=== PATIENT | male | born 1960 | race Caucasian/White ===

== ENCOUNTER 2016-07-22 23:36 | Emergency (ER) | payer BC, OTHER ==
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
--- NOTE | 2016-07-23 02:02 | ED ORDER SUMMARY ---
..... Patient: RITA JEAN OrderSheet [facility] VisitID: [id number] [address] [place] [address] 56y, M Registration Date/Time: 07/22/2016 ORDER SHEET Weight: 99.7 kg (stated) Allergies: Tetracycline GENERAL ORDERS: CT Head wo Cont Urgent (23:47 07/22/2016 EKoroleva P.A.-C) (Ack 23:51 SRedmond) (0:19 RFay) Breathalyzer (23:55 07/22/2016 EKoroleva P.A.-C) (0:03 JDeElena R.N.) Ethyl Alcohol Urgent (00:01 07/23/2016 EKoroleva P.A.-C) (Ack 0:06 SRedmond) (1:08 JDeElena R.N.) CBC w Diff Urgent (00:01 07/23/2016 EKoroleva P.A.-C) (Ack 0:06 SRedmond) (1:08 JDeElena R.N.) CMP Urgent (00:01 07/23/2016 EKoroleva P.A.-C) (Ack 0:06 SRedmond) (1:08 JDeElena R.N.) MEDICATION ORDERS: IV FLUIDS: ORDER SHEET NOTES: [Electronically signed by Jordana Almonte R.N. (02:08 07/23/2016)] [Electronically signed by Cem Velasco DO (03:21 07/23/2016)] [Electronically locked/signed by Jordana Almonte R.N. (02:08 07/23/2016)]
--- NOTE | 2016-07-23 02:02 | ED ORDER SUMMARY ---
..... Patient: RITA JEAN OrderSheet [facility] VisitID: [id number] [address] [place] [address] 56y, M Registration Date/Time: 07/22/2016 ORDER SHEET Weight: 99.7 kg (stated) Allergies: Tetracycline GENERAL ORDERS: CT Head wo Cont Urgent (23:47 07/22/2016 EKoroleva P.A.-C) (Ack 23:51 SRedmond) (0:19 RFay) Breathalyzer (23:55 07/22/2016 EKoroleva P.A.-C) (0:03 JDeElena R.N.) Ethyl Alcohol Urgent (00:01 07/23/2016 EKoroleva P.A.-C) (Ack 0:06 SRedmond) (1:08 JDeElena R.N.) CBC w Diff Urgent (00:01 07/23/2016 EKoroleva P.A.-C) (Ack 0:06 SRedmond) (1:08 JDeElena R.N.) CMP Urgent (00:01 07/23/2016 EKoroleva P.A.-C) (Ack 0:06 SRedmond) (1:08 JDeElena R.N.) MEDICATION ORDERS: IV FLUIDS: ORDER SHEET NOTES: [Electronically signed by Jordana Almonte R.N. (02:08 07/23/2016)] [Electronically signed by Cem Velasco DO (03:21 07/23/2016)] [Electronically locked/signed by Jordana Almonte R.N. (02:08 07/23/2016)]
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
--- NOTE | 2016-07-23 03:21 | ED MED RECONCILIATION SUMMARY ---
Patient: RITA JEAN Medication Reconciliation Report [facility] VisitID: [id number] [address] [place] [address] 56y, M Registration Date/Time: 07/22/2016 Weight: 99.7 kg Height/Length: 69 in. BMI: 32.5 ALLERGIES: Tetracycline The patient's Home Medications are listed below: THE FOLLOWING MEDICATIONS NEED TO BE RECONCILED: high blood pressure pills Paxil Oral The source(s) of the original Home Medication information: patient The following Medications were given to the patient in the Emergency Department: None. The following Medications were prescribed to the patient: Motrin (available over the counter): take according to label instructions. -- Cem Velasco, DO
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
--- NOTE | 2016-07-23 03:21 | ED MED RECONCILIATION SUMMARY ---
Patient: RITA JEAN Medication Reconciliation Report [facility] VisitID: [id number] [address] [place] [address] 56y, M Registration Date/Time: 07/22/2016 Weight: 99.7 kg Height/Length: 69 in. BMI: 32.5 ALLERGIES: Tetracycline The patient's Home Medications are listed below: THE FOLLOWING MEDICATIONS NEED TO BE RECONCILED: high blood pressure pills Paxil Oral The source(s) of the original Home Medication information: patient The following Medications were given to the patient in the Emergency Department: None. The following Medications were prescribed to the patient: Motrin (available over the counter): take according to label instructions. -- Cem Velasco, DO
--- NOTE | 2016-07-23 03:21 | ED MAR SUMMARY ---
..... Medication Administration Record [facility] [address] [place], [place] [id number] Patient: RITA JEAN Visit ID: [id number] 56y, M Weight: 99.7 kg Height/Length: 69 in BMI: 32.5 ALLERGIES: Tetracycline
--- NOTE | 2016-07-23 03:21 | ED MAR SUMMARY ---
..... Medication Administration Record [facility] [address], [place] [id number] Patient: RITA JEAN Visit ID: [id number] 56y, M Weight: 99.7 kg Height/Length: 69 in BMI: 32.5 ALLERGIES: Tetracycline
== END 2016-07-23 02:06 ==
LOC: ED SRH 23:36
DX: S00.83XA Contusion of other part of head, initial encounter (principal); R94.5 Abnormal results of liver function studies; Z02.89 Encounter for other administrative examinations; V43.52XA Car driver injured in collision with other type car in traffic accident, initial encounter; Y93.89 Activity, other specified; Y92.9 Unspecified place or not applicable; Y99.9 Unspecified external cause status; I10 Essential (primary) hypertension; Z79.899 Other long term (current) drug therapy; Z88.0 Allergy status to penicillin
CPT/HCPCS: 90100; 92010; 95059